=== PATIENT | female | born 1960 | race Caucasian/White ===

== ENCOUNTER → 2017-04-20 | Outpatient (CLI) | payer OTHER ==
--- NOTE | 2017-04-20 09:20 | RAD ---
CT scan of the right foot without contrast 04/20/2017 Clinical history: Patient fell in December of this year with right ankle and foot injury. Persistent swelling and pain involving the right ankle and foot. Technique: Unenhanced, contiguous, 0.625 mm axial sections were obtained through the right ankle and foot. 2 mm reconstructed sagittal, axial and coronal images were obtained. One or more of the following individualized dose reduction techniques were utilized for this study: 1. Automated exposure control. 2. Adjustment of the mA and/or kV according to patient size. 3. Use of iterative reconstruction technique. Findings: No previous imaging studies are available for comparison. Mild right hallux valgus deformity is noted. A small bony density is seen anterior and lateral to the right calcaneus which measures 1 cm in greatest diameter. Two small bony densities are seen medial and inferior to the anterior aspect of the medial talus. These measure 2 to 3 mm in size. They may represent old avulsion fractures. No acute fracture or dislocation of the right foot is seen. No fracture or dislocation of the right ankle is noted. Mild enthesophyte formation is seen involving the posterior dorsal aspect of the calcaneus. Calcification of the posterior tibial and distal anterior tibial arteries is noted. Impression: Small bony densities are seen which may represent old avulsion fractures as outlined above. No acute osseous abnormality is seen.
== END | disposition home or self-care (01) ==
LOC: CT 07:54
PROVIDERS: ATTEND Nurse Practitioner Gerontology
DX: S99.921D Unspecified injury of right foot, subsequent encounter (principal); M20.11 Hallux valgus (acquired), right foot; W19.XXXD Unspecified fall, subsequent encounter; F17.200 Nicotine dependence, unspecified, uncomplicated
CPT/HCPCS: 73700